=== PATIENT | female | born 1960 | race Caucasian/White ===

== ENCOUNTER 2019-09-22 19:06 | Outpatient (REF) | payer OTHER, SELFPAY ==
[2019-09-22 13:40] LABS: Bilirubin Negative (Negative); Blood Moderate (Negative); Glucose Negative (Negative); Ketones Negative (Negative); Leukocyte Esterase Small (Negative); Nitrite Negative (Negative); Urobilinogen 0.2 EU/dL (Up TO 0.2); pH 7.5 (5-8)
[2019-09-22 13:41] LABS: Clarity Cloudy (Clear)
[2019-09-22 13:56] LABS: WBC >50 HPF (0-5)
[2019-09-22 13:59] LABS: Bacteria Few HPF (Negative); Epithelial Cells Rare HPF (Negative)
[2019-09-22 14:00] LABS: C & S Indicated? Yes
== END 2019-09-22 19:26 ==
LOC: LBN 19:06
PROVIDERS: PCP Nurse Practitioner
DX: N39.0 Urinary tract infection, site not specified (principal)
CPT/HCPCS: 81003; 81015; 87086